=== PATIENT | female | born 1940 | race Caucasian/White ===

== ENCOUNTER 2021-11-10 17:30 | Inpatient (IN) ==
[2021-11-10 18:28] LABS: Basophils # 0.1 K/mcL (0.0-0.2); Basophils % 0.5 %; Eosinophils # 0.1 K/mcL (0.0-0.6); Eosinophils % 0.7 %; Hematocrit 34.3 % (35.3-44.9); Hemoglobin 11.1 g/dL (11.5-15.4); Immature Granulocytes % 0.3 % (0-4); Lymphocytes # 1.4 K/mcL (0.6-4.6); Lymphocytes % 10.8 %; Mean Corpuscular HGB Conc 32.4 g/dL (31.6-35.5); Mean Corpuscular Volume 89.6 fL (83.0-100.0); Mean Platelet Volume 11.4 fL (9.4-12.4); Monocytes # 0.5 K/mcL (0.0-1.3); Monocytes % 4.1 %; Platelet Count 249 K/mcL (140-400); Red Blood Count 3.83 M/mcL (3.82-4.97); Red Cell Distribution Width 15.5 % (11.5-14.5); Segmented Neutrophils % 83.6 %; White Blood Count 13.1 K/mcL (4.3-11.1)
[2021-11-10 18:47] LABS: Calcium 9.1 mg/dL (8.6-10.3); Potassium 4.5 mEq/L (3.5-5.1)
[2021-11-10] MEDS ORDERED: Melatonin 3 MG TABLET PO PRN (19:29)
[2021-11-10] MEDS ORDERED: Naloxone 0.4 MG/ML INJ IVP PRN (19:29)
[2021-11-10 19:59] LABS: Prothrombin Time 21.9 Seconds (9.4-12.1)
[2021-11-10 20:01] LABS: Activated Partial Thrombo Time 36.3 Seconds (26.0-36.0)
[2021-11-10] MEDS ORDERED: Nystatin POWDER 30 GM BOTTLE TP SCH (21:00)
[2021-11-10] MEDS: allopurinoL 300 MG TABLET PO SCH (22:03)
[2021-11-10] MEDS: Cholecalciferol (D-3) 1,000 UNIT (25MCG) TABLET PO SCH (22:03)
[2021-11-11 05:21] LABS: Basophils # 0.1 K/mcL (0.0-0.2); Basophils % 0.4 %; Eosinophils # 0.3 K/mcL (0.0-0.6); Eosinophils % 2.4 %; Hematocrit 33.1 % (35.3-44.9); Hemoglobin 10.5 g/dL (11.5-15.4); Immature Granulocytes % 0.4 % (0-4); Lymphocytes # 1.3 K/mcL (0.6-4.6); Lymphocytes % 10.7 %; Mean Corpuscular HGB Conc 31.7 g/dL (31.6-35.5); Mean Corpuscular Hemoglobin 28.8 pg (28.0-33.3); Mean Corpuscular Volume 90.7 fL (83.0-100.0); Mean Platelet Volume 11.1 fL (9.4-12.4); Monocytes # 0.6 K/mcL (0.0-1.3); Monocytes % 5.1 %; Neutrophils # 10.1 K/mcL (1.6-8.9); Platelet Count 205 K/mcL (140-400); Red Blood Count 3.65 M/mcL (3.82-4.97); Red Cell Distribution Width 15.3 % (11.5-14.5); White Blood Count 12.5 K/mcL (4.3-11.1)
[2021-11-11] MEDS: Acetaminophen 325 MG TABLET PO PRN (05:23)
[2021-11-11 05:26] LABS: Prothrombin Time 22.3 Seconds (9.4-12.1)
[2021-11-11] MEDS ORDERED: Nystatin POWDER 30 GM BOTTLE TP PRN (06:14)
[2021-11-11] MEDS ORDERED: *HR* Enoxaparin 40 MG/0.4 ML SYRINGE SQ SCH (07:00)
[2021-11-11 07:21] LABS: Albumin 3.3 g/dL (3.5-5.7); Albumin/Globulin Ratio 1.2 (1.1-2.2); Bilirubin,Total 0.4 mg/dL (0.3-1.0); Calcium 9.2 mg/dL (8.6-10.3); Globulin 2.7 g/dL (2.4-3.5); Potassium 3.7 mEq/L (3.5-5.1)
[2021-11-11] MEDS: allopurinoL 300 MG TABLET PO SCH (08:23)
[2021-11-11] MEDS: cefTRIAXone 1,000 MG in Water for inj. (sterile) 10 ML IVP SCH (08:23)
[2021-11-11] MEDS: Furosemide 40 MG TABLET PO SCH (08:23)
[2021-11-11] MEDS: Cholecalciferol (D-3) 1,000 UNIT (25MCG) TABLET PO SCH ×2 (08:23→20:43)
[2021-11-11] MEDS: IRBESARTAN 150 MG PO SCH (08:24)
[2021-11-11] MEDS ORDERED: *HR* Warfarin 2 MG TABLET PO ONE (18:00)
[2021-11-11] MEDS ORDERED: Warfarin perPT PO PRN (18:00)
[2021-11-11] MEDS ORDERED: *HR* Warfarin 2 MG TABLET PO SCH (18:21)
[2021-11-12 05:12] LABS: Basophils # 0.1 K/mcL (0.0-0.2); Basophils % 0.7 %; Eosinophils # 0.5 K/mcL (0.0-0.6); Eosinophils % 5.6 %; Hematocrit 30.8 % (35.3-44.9); Hemoglobin 9.7 g/dL (11.5-15.4); Immature Granulocytes % 0.3 % (0-4); Lymphocytes # 1.7 K/mcL (0.6-4.6); Lymphocytes % 19.1 %; Mean Corpuscular HGB Conc 31.5 g/dL (31.6-35.5); Mean Corpuscular Hemoglobin 28.6 pg (28.0-33.3); Mean Corpuscular Volume 90.9 fL (83.0-100.0); Mean Platelet Volume 11.5 fL (9.4-12.4); Monocytes # 0.6 K/mcL (0.0-1.3); Monocytes % 6.8 %; Neutrophils # 5.8 K/mcL (1.6-8.9); Platelet Count 216 K/mcL (140-400); Red Blood Count 3.39 M/mcL (3.82-4.97); Red Cell Distribution Width 15.6 % (11.5-14.5); Segmented Neutrophils % 67.5 %; White Blood Count 8.6 K/mcL (4.3-11.1)
[2021-11-12 05:25] LABS: INR 2.1; Prothrombin Time 23.5 Seconds (9.4-12.1)
[2021-11-12 05:42] LABS: Calcium 8.8 mg/dL (8.6-10.3); Potassium 3.9 mEq/L (3.5-5.1)
[2021-11-12] MEDS: Furosemide 40 MG TABLET PO SCH (09:00)
[2021-11-12] MEDS: Cholecalciferol (D-3) 1,000 UNIT (25MCG) TABLET PO SCH ×2 (09:01→21:30)
[2021-11-12] MEDS: allopurinoL 300 MG TABLET PO SCH (09:01)
[2021-11-12] MEDS: IRBESARTAN 150 MG PO SCH (09:02)
[2021-11-12] MEDS: cefTRIAXone 1,000 MG in Water for inj. (sterile) 10 ML IVP SCH (09:02)
[2021-11-12] MEDS: 0.9 % Sodium Chloride 1,000 ML IVC SCH (16:36)
[2021-11-12] MEDS ORDERED: *HR* Warfarin 2 MG TABLET PO ONE (18:00)
[2021-11-13] MEDS: 0.9 % Sodium Chloride 1,000 ML IVC SCH (03:08)
[2021-11-13] MEDS: Acetaminophen 325 MG TABLET PO PRN ×2 (03:13→20:09)
[2021-11-13 05:01] LABS: Basophils # 0.1 K/mcL (0.0-0.2); Basophils % 0.8 %; Eosinophils # 0.5 K/mcL (0.0-0.6); Eosinophils % 5.3 %; Hematocrit 28.5 % (35.3-44.9); Immature Granulocytes % 0.2 % (0-4); Lymphocytes # 2.2 K/mcL (0.6-4.6); Lymphocytes % 24.7 %; Mean Corpuscular HGB Conc 31.6 g/dL (31.6-35.5); Mean Corpuscular Hemoglobin 28.6 pg (28.0-33.3); Mean Corpuscular Volume 90.5 fL (83.0-100.0); Mean Platelet Volume 11.4 fL (9.4-12.4); Monocytes # 0.6 K/mcL (0.0-1.3); Monocytes % 6.3 %; Neutrophils # 5.5 K/mcL (1.6-8.9); Platelet Count 195 K/mcL (140-400); Red Blood Count 3.15 M/mcL (3.82-4.97); Red Cell Distribution Width 15.6 % (11.5-14.5); Segmented Neutrophils % 62.7 %; White Blood Count 8.7 K/mcL (4.3-11.1)
[2021-11-13 05:02] LABS: INR 1.9; Prothrombin Time 21.2 Seconds (9.4-12.1)
[2021-11-13 05:13] LABS: Calcium 8.7 mg/dL (8.6-10.3); Potassium 3.9 mEq/L (3.5-5.1)
[2021-11-13] MEDS: allopurinoL 300 MG TABLET PO SCH (09:18)
[2021-11-13] MEDS: Cholecalciferol (D-3) 1,000 UNIT (25MCG) TABLET PO SCH ×2 (09:18→20:07)
[2021-11-13] MEDS: IRBESARTAN 150 MG PO SCH (09:19)
[2021-11-13] MEDS: cefTRIAXone 1,000 MG in Water for inj. (sterile) 10 ML IVP SCH (09:20)
[2021-11-13] MEDS: Sennosides 8.6 MG TABLET PO SCH ×2 (12:31→20:06)
[2021-11-13] MEDS ORDERED: *HR* Warfarin 3 MG TABLET PO ONE (18:00)
[2021-11-14 05:23] LABS: Basophils # 0.1 K/mcL (0.0-0.2); Basophils % 0.9 %; Eosinophils # 0.4 K/mcL (0.0-0.6); Eosinophils % 5.3 %; Hematocrit 28.3 % (35.3-44.9); Hemoglobin 8.8 g/dL (11.5-15.4); Immature Granulocytes % 0.4 % (0-4); Lymphocytes # 2.2 K/mcL (0.6-4.6); Mean Corpuscular HGB Conc 31.1 g/dL (31.6-35.5); Mean Corpuscular Hemoglobin 28.6 pg (28.0-33.3); Mean Corpuscular Volume 91.9 fL (83.0-100.0); Mean Platelet Volume 11.5 fL (9.4-12.4); Monocytes # 0.5 K/mcL (0.0-1.3); Monocytes % 6.4 %; Neutrophils # 4.8 K/mcL (1.6-8.9); Platelet Count 199 K/mcL (140-400); Red Blood Count 3.08 M/mcL (3.82-4.97); Red Cell Distribution Width 15.3 % (11.5-14.5)
[2021-11-14 05:27] LABS: INR 1.9; Prothrombin Time 20.8 Seconds (9.4-12.1)
[2021-11-14 05:35] LABS: Calcium 9.1 mg/dL (8.6-10.3); Potassium 4.3 mEq/L (3.5-5.1)
[2021-11-14] MEDS: Sennosides 8.6 MG TABLET PO SCH ×2 (08:21→21:54)
[2021-11-14] MEDS: Acetaminophen 325 MG TABLET PO PRN ×2 (08:21→21:54)
[2021-11-14] MEDS: Cholecalciferol (D-3) 1,000 UNIT (25MCG) TABLET PO SCH ×2 (08:21→21:55)
[2021-11-14] MEDS: cefTRIAXone 1,000 MG in Water for inj. (sterile) 10 ML IVP SCH ×2 (08:22→09:47)
[2021-11-14] MEDS: allopurinoL 300 MG TABLET PO SCH (08:22)
[2021-11-14] MEDS: IRBESARTAN 150 MG PO SCH (10:46)
[2021-11-14] MEDS ORDERED: *HR* Warfarin 3 MG TABLET PO ONE (18:00)
[2021-11-15] MEDS: Acetaminophen 325 MG TABLET PO PRN (03:44)
[2021-11-15 05:10] LABS: Basophils # 0.1 K/mcL (0.0-0.2); Basophils % 0.8 %; Eosinophils # 0.4 K/mcL (0.0-0.6); Eosinophils % 4.1 %; Hematocrit 27.5 % (35.3-44.9); Hemoglobin 8.7 g/dL (11.5-15.4); Immature Granulocytes % 0.4 % (0-4); Lymphocytes # 2.4 K/mcL (0.6-4.6); Lymphocytes % 27.9 %; Mean Corpuscular HGB Conc 31.6 g/dL (31.6-35.5); Mean Corpuscular Hemoglobin 28.6 pg (28.0-33.3); Mean Corpuscular Volume 90.5 fL (83.0-100.0); Mean Platelet Volume 11.3 fL (9.4-12.4); Monocytes # 0.5 K/mcL (0.0-1.3); Neutrophils # 5.2 K/mcL (1.6-8.9); Platelet Count 207 K/mcL (140-400); Red Blood Count 3.04 M/mcL (3.82-4.97); Red Cell Distribution Width 15.5 % (11.5-14.5); Segmented Neutrophils % 60.8 %; White Blood Count 8.5 K/mcL (4.3-11.1)
[2021-11-15 05:12] LABS: Prothrombin Time 22.4 Seconds (9.4-12.1)
[2021-11-15 05:24] LABS: Potassium 4.4 mEq/L (3.5-5.1)
[2021-11-15] MEDS: cefTRIAXone 1,000 MG in Water for inj. (sterile) 10 ML IVP SCH (08:15)
[2021-11-15] MEDS: IRBESARTAN 150 MG PO SCH (08:16)
[2021-11-15] MEDS: Cholecalciferol (D-3) 1,000 UNIT (25MCG) TABLET PO SCH (08:16)
[2021-11-15] MEDS: Sennosides 8.6 MG TABLET PO SCH (08:16)
[2021-11-15] MEDS: allopurinoL 300 MG TABLET PO SCH (08:17)
[2021-11-15 09:07] VITALS: BP 129/61; PULSE 77; RESP 18; TEMP 97.2; O2SAT 97
== END 2021-11-15 12:47 | DRG 690 ==
LOC: INPGRE 17:30 → EMEROOGRE 17:30 → INPGRE 18:57
PROVIDERS: ADMIT Family Medicine; ATTEND Family Medicine